=== PATIENT | female | born 1985 | race American Indian/Alaskan Native ===

== ENCOUNTER 2017-05-11 09:36 | Emergency (ER) | payer OTHER ==
[2017-05-11 10:14] VITALS: BP 105/57
[2017-05-11 11:01] LABS: Basophils % (Auto) 0.6 % (0.0-1.8); Eosinophils % (Auto) 0.6 % (0.0-4.3); Hematocrit 42.4 % (30.3-42.9); Hemoglobin 14.4 gm/dl (10.1-14.3); Lymphocytes # (Auto) 1.9 K/mm3 (1.2-5.4); Lymphocytes % (Auto) 25.5 % (13.4-35.0); Mean Corpuscular HGB Conc 34 % (30-34); Mean Corpuscular Hemoglobin 29 pg (28-32); Mean Corpuscular Volume 86 fl (79-97); Monocytes # (Auto) 0.5 K/mm3 (0.0-0.8); Monocytes % (Auto) 6.7 % (0.0-7.3); Platelet Count 165 K/mm3 (140-440); Red Blood Count 4.91 M/mm3 (3.65-5.03); Red Cell Distribution Width 12.6 % (13.2-15.2)
[2017-05-11 11:09] LABS: BUN/Creatinine Ratio 14; Blood Urea Nitrogen 7 mg/dL (7-17); Hemolysis Index 32
--- NOTE | 2017-05-11 11:16 | XRay Report ---
PA and lateral chest: Right chest pain. There is a dextroscoliosis with otherwise unremarkable bony structures. The lungs are clear the mediastinal contour is unremarkable. No prior exam for comparison. Impression: No acute finding.
[2017-05-11] MEDS ORDERED: ULTRAM PO ONE (11:34)
--- NOTE | 2017-05-11 11:39 | Emergency Department Report ---
ED Chest Pain HPI - General Chief Complaint: Chest Pain Stated Complaint: CP Time Seen by Provider: 05/11/17 11:31 Source: patient Mode of arrival: Ambulatory Limitations: No Limitations - History of Present Illness Initial Comments: Patient is a 32-year-old -Luxembourger female who presents to ED for substernal chest pain radiating to right upper back 1 week pain is exacerbated by deep breathing patient states intermittent shortness of breath there is no history of asthma bronchitis in no fever no chills no nausea no vomiting pain is reproduced to palpation and right arm movement . Patient denies fall trauma or injury patient concern for PE however there is no patient or family history of same. MD Complaint: chest pain Onset/Timin -: week(s) Onset: other (deep breathing ) Pain Location: substernal, right chest Pain Radiation: back Severity: moderate Severity scale (0 -10): 5 Quality: sharp Consistency: intermittent Improves With: nothing Worsens With: palpation, movement Context: recent travel (recent car trip for Dc to [place] 10 hrs 5 days ago ) re: dyspnea. denies: nausea, vomting, diaphoresis, sense of impending doom Other Symptoms: cough. denies: fever, syncope, rash, acid taste in mouth, leg swelling, palpitations, burping Treatments Prior to Arrival: none - Related Data On Oral Contraceptives: No Previous Rx's Medication Instructions Recorded Last Taken Type Cephalexin [Keflex] 500 mg PO BID #14 capsule 05/11/17 Unknown Rx Naproxen 500 mg PO BID PRN #60 tablet 05/11/17 Unknown Rx Allergies Allergy/AdvReac Type Severity Reaction Status Date / Time No Known Allergies Allergy Unverified 05/11/17 10:09 Heart Score - HEART Score History: Slightly suspicious EKG: Normal Age: < 45 Risk factors: No known risk factors Troponin: < normal limit (0) HEART Score: 0 ED Review of Systems ROS: Stated complaint: CP Other details as noted in HPI Constitutional: denies: chills, fever Eyes: denies: eye pain, eye discharge, vision change ENT: denies: ear pain, throat pain Respiratory: denies: cough, shortness of breath, wheezing Cardiovascular: chest pain. denies: palpitations Endocrine: no symptoms reported Gastrointestinal: denies: abdominal pain, nausea, diarrhea Genitourinary: denies: urgency, dysuria, discharge Musculoskeletal: denies: back pain, joint swelling, arthralgia Skin: denies: rash, lesions Neurological: denies: headache, weakness, paresthesias Psychiatric: denies: anxiety, depression Hematological/Lymphatic: denies: easy bleeding, easy bruising ED Past Medical Hx - Past Medical History Previous Medical History?: Yes Additional medical history: heart murmur - Surgical History Past Surgical History?: No - Social History Smoking Status: Current Every Day Smoker Substance Use Type: Alcohol, Marijuana - Medications Home Medications: Home Medications Medication Instructions Recorded Confirmed Last Taken Type Cephalexin [Keflex] 500 mg PO BID #14 capsule 05/11/17 Unknown Rx Naproxen 500 mg PO BID PRN #60 tablet 05/11/17 Unknown Rx ED Physical Exam - General Limitations: No Limitations General appearance: alert, in no apparent distress - Head Head exam: Present: atraumatic, normocephalic - Eye Eye exam: Present: normal appearance - ENT ENT exam: Present: mucous membranes moist - Neck Neck exam: Present: normal inspection - Respiratory Respiratory exam: Present: normal lung sounds bilaterally, chest wall tenderness (right lateral chest wall ). Absent: respiratory distress, wheezes, stridor - Cardiovascular Cardiovascular Exam: Present: regular rate, normal rhythm, normal heart sounds, systolic murmur. Absent: diastolic murmur, rubs, gallop - GI/Abdominal GI/Abdominal exam: Present: soft, normal bowel sounds. Absent: distended, tenderness, guarding, rebound, rigid, organomegaly, mass, bruit, pulsatile mass , hernia - Rectal Rectal exam: Present: deferred - Extremities Exam Extremities exam: Present: normal inspection, full ROM. Absent: tenderness - Back Exam Back exam: Present: normal inspection, full ROM, tenderness (right flank). Absent: CVA tenderness (R), CVA tenderness (L), muscle spasm, paraspinal tenderness, vertebral tenderness - Neurological Exam Neurological exam: Present: alert, oriented X3, CN II-XII intact, normal gait, reflexes normal - Psychiatric Psychiatric exam: Present: normal affect, normal mood - Skin Skin exam: Present: warm, dry, intact, normal color. Absent: rash ED Course Vital Signs 05/11/17 10:09 Temperature 98.2 F Pulse Rate 68 Respiratory 20 Rate Blood Pressure 105/57 O2 Sat by Pulse 100 Oximetry JOSE score - Jose Score Age > 65: (0) No Aspirin use within the Past 7 Days: (0) No 3 or more CAD Risk Factors: (0) No 2 or more Angina events in past 24 hrs: (1) Yes Known CAD with more than 50% Stenosis: (0) No Elevated Cardiac Markers: (0) No ST Deviation Greater than 0.5mm: (0) No JOSE Score: 1 ED Medical Decision Making - Lab Data Result diagrams: 05/11/17 10:43 05/11/17 10:43 Laboratory Tests 05/11/17 05/11/17 05/11/17 10:43 10:43 10:43 WBC 7.3 RBC 4.91 Hgb 14.4 H Hct 42.4 MCV 86 MCH 29 MCHC 34 RDW 12.6 L Plt Count 165 Lymph % (Auto) 25.5 Park % (Auto) 6.7 Eos % (Auto) 0.6 Baso % (Auto) 0.6 Lymph # 1.9 Park # 0.5 Eos # 0.0 Baso # 0.0 Seg Neutrophils % 66.6 Seg Neutrophils # 4.9 D-Dimer Sodium 139 Potassium 4.6 Chloride 101.7 Carbon Dioxide 27 Anion Gap 15 BUN 7 Creatinine 0.5 L Estimated GFR > 60 BUN/Creatinine Ratio 14 Glucose 84 Calcium 9.0 Troponin T < 0.010 05/11/17 12:05 WBC RBC Hgb Hct MCV MCH MCHC RDW Plt Count Lymph % (Auto) Park % (Auto) Eos % (Auto) Baso % (Auto) Lymph # Park # Eos # Baso # Seg Neutrophils % Seg Neutrophils # D-Dimer < 135 Sodium Potassium Chloride Carbon Dioxide Anion Gap BUN Creatinine Estimated GFR BUN/Creatinine Ratio Glucose Calcium Troponin T Laboratory Tests 05/11/17 05/11/17 05/11/17 10:43 10:43 10:43 WBC 7.3 RBC 4.91 Hgb 14.4 H Hct 42.4 MCV 86 MCH 29 MCHC 34 RDW 12.6 L Plt Count 165 Lymph % (Auto) 25.5 Park % (Auto) 6.7 Eos % (Auto) 0.6 Baso % (Auto) 0.6 Lymph # 1.9 Park # 0.5 Eos # 0.0 Baso # 0.0 Seg Neutrophils % 66.6 Seg Neutrophils # 4.9 D-Dimer Sodium 139 Potassium 4.6 Chloride 101.7 Carbon Dioxide 27 Anion Gap 15 BUN 7 Creatinine 0.5 L Estimated GFR > 60 BUN/Creatinine Ratio 14 Glucose 84 Calcium 9.0 Troponin T < 0.010 Urine Color Urine Turbidity Urine pH Ur Specific [place] Urine Protein Urine Glucose (UA) Urine Ketones Urine Blood Urine Nitrite Ur Reducing Substances Urine Bilirubin Urine Ictotest Urine Urobilinogen Ur Leukocyte Esterase Urine WBC (Auto) Urine RBC (Auto) U Epithel Cells (Auto) Urine Mucus Urine HCG, Qual 05/11/17 05/11/17 12:05 12:50 WBC RBC Hgb Hct MCV MCH MCHC RDW Plt Count Lymph % (Auto) Park % (Auto) Eos % (Auto) Baso % (Auto) Lymph # Park # Eos # Baso # Seg Neutrophils % Seg Neutrophils # D-Dimer < 135 Sodium Potassium Chloride Carbon Dioxide Anion Gap BUN Creatinine Estimated GFR BUN/Creatinine Ratio Glucose Calcium Troponin T Urine Color Yellow Urine Turbidity Clear Urine pH 5.0 Ur Specific [place] 1.017 Urine Protein <15 mg/dl Urine Glucose (UA) Neg Urine Ketones Neg Urine Blood Sm Urine Nitrite Neg Ur Reducing Substances Not Reportable Urine Bilirubin Neg Urine Ictotest Not Reportable Urine Urobilinogen < 2.0 Ur Leukocyte Esterase Mod Urine WBC (Auto) 18.0 H Urine RBC (Auto) 8.0 U Epithel Cells (Auto) 9.0 Urine Mucus Few Urine HCG, Qual Negative - EKG Data EKG shows normal: sinus rhythm Rate: normal - EKG Data When compared to previous EKG there are: previous EKG unavailable, other (no previous EKG available ) Interpretation: normal EKG - Radiology Data Radiology results: report reviewed, image reviewed normal chest xray - Medical Decision Making Patient is a 32-year-old -Luxembour[place] female who presents to ED for substernal chest pain radiating to right upper back 1 week pain is exacerbated by deep breathing patient states intermittent shortness of breath there is no history of asthma bronchitis in no fever no chills no nausea no vomiting pain is reproduced to palpation and right arm movement . Patient denies fall trauma or injury patient concern for PE however there is no patient or family history of same. pt exam pt appears well nontoxic, right lateral chest wall pain to palpation no ecchymosis no deformity no crepitus no wheezing , pain is reproducible to palpation, cxr: normal , cmp: normal, cbc: normal, UA: luek, wbc , trace bld, this is not a kidney stone, or pyelo there is no hematuria, dysuria, frequenc flank pain no no urinary hesitency no fever no chills HCG:neg DDimer: , pain 5/10 with inspiration, pt given ketorlac 50 po , plan reassess pain level , noted DDimera; 115 plan tx for uti, chest wall pain pt claudia follow with orthopedics for evaluation of scoliosis chronic, pt verbalized agreement and understanding of same. pain is improved to 2/10 at this time pt for dc to home in stable condition at this time. Critical care attestation.: If time is entered above; I have spent that time in minutes in the direct care of this critically ill patient, excluding procedure time. ED Disposition Clinical Impression: Chest wall pain UTI (urinary tract infection) Qualifiers: Urinary tract infection type: acute cystitis Hematuria presence: without hematuria Qualified Code(s): N30.00 - Acute cystitis without hematuria Back pain Qualifiers: Back pain location: low back pain Chronicity: chronic Back pain laterality: right Sciatica presence: without sciatica Qualified Code(s): M54.5 - Low back pain; G89.29 - Other chronic pain; G89.29 - Other chronic pain Disposition: DC-01 TO HOME OR SELFCARE Is pt being admited?: No Does the pt Need Aspirin: No Condition: Good Instructions: Chest Pain (ED) Prescriptions: Cephalexin [Keflex] 500 mg PO BID #14 capsule Naproxen 500 mg PO BID PRN #60 tablet PRN Reason: Pain Referrals: PACHECO LINO MD [Staff Physician] - 3-5 Days MICHAEL MARTINEZ MD [Staff Physician] - 3-5 Days Forms: Work/School Release Form(ED) Time of Disposition: 14:12
[2017-05-11 13:16] LABS: HCG Qualitative,Urine Negative (Negative)
[2017-05-11 13:20] LABS: Bilirubin,Urine NEG (Negative); Blood,Urine SM (Negative); Color,Urine Yellow (Yellow); Mucus,Urine FEW /HPF; Nitrite,Urine NEG (Negative); Protein,Urine <15 mg/dL mg/dL (Negative); Urobilinogen,Urine < 2.0 mg/dL (<2.0)
== END 2017-05-11 14:48 | disposition home or self-care (01) ==
LOC: ED 09:36
DX: R07.89 Other chest pain (principal); M54.5 Low back pain; G89.29 Other chronic pain; N30.00 Acute cystitis without hematuria; F12.10 Cannabis abuse, uncomplicated; F17.200 Nicotine dependence, unspecified, uncomplicated
CPT/HCPCS: 36415; 71046; 80048; 81001; 81025; 84484; 85025; 85379; 93005; 93010; 99284

== ENCOUNTER 2019-04-13 14:03 | Emergency (ER) | payer MEDICAID ==
[2019-04-13 14:11] VITALS: BP 114/52
--- NOTE | 2019-04-13 14:12 | Emergency Department Report ---
Chief Complaint: Medical Clearance Stated Complaint: KNOT ON BREAST Time Seen by Provider: 04/13/19 14:07 - HPI History of Present Illness: states that whenever she has a menstrual cycle she notices a lump in her right breast states that it spontaneously goes away after her cycle states that she noticed the lump again last night and her cycle is supposed to start in approximately 1 week no nipple discharge pt is not breast feeding no skin changes on the breast no fever no SENIOR DESIGN ENGINEERING SPECIALIST no PMHx no allergies to meds grandmother hx of breast CA, dx at 74 years old vitals are normal radiation engineer during examination: Lisset Hilton RN on exam: small freely moveable lump to the right breast at the 4 oclock position, she has tenderness upon palpation, there is no nipple discharge, no nipple retraction, no peau d'orange pt will be referred to an SENIOR DESIGN ENGINEERING SPECIALIST for further evaluation pt is presenting with a non medical emergency at this time MSE screening note: Focused history and physical exam performed. ED Disposition for MSE Clinical Impression: Lump of right breast Disposition: MED SCREENING EXAM-LEFT Is pt being admited?: No Does the pt Need Aspirin: No Condition: Stable Referrals: [facility] [Provider Group] - 2-3 Days [facility] [Provider Group] - 2-3 Days [facility] [Provider Group] - 2-3 Days Time of Disposition: 14:11 Print Language: WALLISIAN
== END 2019-04-13 14:30 | disposition left against medical advice (07) ==
LOC: ED 14:03
DX: N63.0 Unspecified lump in unspecified breast (principal)
CPT/HCPCS: 99282

== ENCOUNTER 2019-07-10 12:30 | Emergency (ER) | payer MEDICAID ==
--- NOTE | 2019-07-10 12:37 | Emergency Department Report ---
Blank Doc - Documentation Documentation: 34-year-old female that presents with abdominal pain with nausea. This initial assessment/diagnostic orders/clinical plan/treatment(s) is/are subject to change based on patient's health status, clinical progression and re- assessment by fellow clinical providers in the ED. Further treatment and workup at subsequent clinical providers discretion. Patient/guardians urged not to elope from the ED as their condition may be serious if not clinically assessed and managed. Initial orders include: 1- Patient sent to [facility] for further evaluation and treatment 2- labs 3- UA
[2019-07-10 13:28] LABS: Bilirubin,Urine NEG (Negative); Blood,Urine NEG (Negative); Color,Urine Yellow (Yellow); Mucus,Urine FEW /HPF; Protein,Urine <15 mg/dL mg/dL (Negative); Urobilinogen,Urine < 2.0 mg/dL (<2.0)
[2019-07-10 14:13] LABS: Basophils % (Auto) 0.7 % (0.0-1.8); Eosinophils # (Auto) 0.1 K/mm3 (0.0-0.4); Eosinophils % (Auto) 1.3 % (0.0-4.3); Hematocrit 39.7 % (30.3-42.9); Hemoglobin 13.2 gm/dl (10.1-14.3); Lymphocytes # (Auto) 1.7 K/mm3 (1.2-5.4); Lymphocytes % (Auto) 31.5 % (13.4-35.0); Mean Corpuscular HGB Conc 33 % (30-34); Mean Corpuscular Volume 86 fl (79-97); Monocytes # (Auto) 0.5 K/mm3 (0.0-0.8); Monocytes % (Auto) 8.4 % (0.0-7.3); Platelet Count 186 K/mm3 (140-440); Red Cell Distribution Width 12.5 % (13.2-15.2)
[2019-07-10 14:21] LABS: Alanine Aminotransferase 16 units/L (7-56); Albumin 4.1 g/dL (3.9-5); BUN/Creatinine Ratio 10; Blood Urea Nitrogen 6 mg/dL (7-17); Hemolysis Index 18
[2019-07-10] MEDS ORDERED: MAGNESIUM CITRATE 300 ML ORAL LIQD PO ONE (14:52)
--- NOTE | 2019-07-10 14:52 | Emergency Department Report ---
ED Abdominal Pain HPI - General Chief Complaint: Abdominal Pain Stated Complaint: STOMACH/CONSTIPATED Time Seen by Provider: 07/10/19 12:36 Source: patient Mode of arrival: Ambulatory Limitations: No Limitations - History of Present Illness Initial Comments: Patient is a 34-year-old -Af[place] female who comes to the ER with complaints of constipation. She states she had a BM this morning but she had to push really hard to have a small stool. She denies any nausea vomiting or runny loose diarrhea. Patient denies any fever or chills. Patient denies any dysuria or vaginal bleeding. Her last menstrual cycle was 2-20. Patient endorses ciga rette smoking. Denies drugs or alcohol. Patient is nontoxic on exam. However she is tender on palpation in the periumbilical area. -: Gradual, days(s) Location: periumbilical Consistency: constant Improves With: nothing Worsens With: nothing Associated Symptoms: denies other symptoms, constipation - Related Data Previous Rx's Medication Instructions Recorded Last Taken Type Ibuprofen [Motrin] 800 mg PO Q8HR PRN #30 tablet 07/10/19 Unknown Rx Sulfamethoxazole/Trimethoprim 1 each PO BID #10 tablet 07/10/19 Unknown Rx [Bactrim DS TAB] Allergies Allergy/AdvReac Type Severity Reaction Status Date / Time No Known Allergies Allergy Verified 04/13/19 14:03 ED Review of Systems ROS: Stated complaint: STOMACH/CONSTIPATED Other details as noted in HPI Comment: All other systems reviewed and negative ED Past Medical Hx - Past Medical History Previous Medical History?: Yes Additional medical history: heart murmur - Surgical History Past Surgical History?: Yes Additional Surgical History: C SECTION/ TONSILS - Family History Family history: no significant - Social History Smoking Status: Never Smoker Substance Use Type: None - Medications Home Medications: Home Medications Medication Instructions Recorded Confirmed Last Taken Type Ibuprofen [Motrin] 800 mg PO Q8HR PRN #30 tablet 07/10/19 Unknown Rx Sulfamethoxazole/Trimethoprim 1 each PO BID #10 tablet 07/10/19 Unknown Rx [Bactrim DS TAB] ED Physical Exam - General Limitations: No Limitations General appearance: alert, in no apparent distress - Head Head exam: Present: atraumatic, normocephalic - Eye Eye exam: Present: normal appearance - ENT ENT exam: Present: mucous membranes moist - Neck Neck exam: Present: normal inspection - Respiratory Respiratory exam: Present: normal lung sounds bilaterally. Absent: respiratory distress - Cardiovascular Cardiovascular Exam: Present: regular rate, normal rhythm. Absent: systolic murmur, diastolic murmur, rubs, gallop - GI/Abdominal GI/Abdominal exam: Present: soft, tenderness, normal bowel sounds - Extremities Exam Extremities exam: Present: normal inspection - Back Exam Back exam: Present: normal inspection - Neurological Exam Neurological exam: Present: alert, oriented X3 - Psychiatric Psychiatric exam: Present: normal affect, normal mood - Skin Skin exam: Present: warm, dry, intact, normal color. Absent: rash ED Course Vital Signs 07/10/19 07/10/19 12:36 18:09 Temperature 97.9 F 98.7 F Pulse Rate 92 H 51 L Respiratory 18 16 Rate Blood Pressure 110/60 109/62 O2 Sat by Pulse 99 100 Oximetry ED Medical Decision Making - Lab Data Result diagrams: 07/10/19 13:21 07/10/19 13:21 - Radiology Data Radiology results: report reviewed, image reviewed - Medical Decision Making Labs 07/10/19 07/10/19 07/10/19 12:55 13:21 13:21 WBC 5.4 RBC 4.60 Hgb 13.2 Hct 39.7 MCV 86 MCH 29 MCHC 33 RDW 12.5 L Plt Count 186 Lymph % (Auto) 31.5 [place] % (Auto) 8.4 H Eos % (Auto) 1.3 Baso % (Auto) 0.7 Lymph # 1.7 [place] # 0.5 Eos # 0.1 Baso # 0.0 Seg Neutrophils % 58.1 Seg Neutrophils # 3.1 Sodium 138 Potassium 4.6 Chloride 102.4 Carbon Dioxide 23 Anion Gap 17 BUN 6 L Creatinine 0.6 L Estimated GFR > 60 BUN/Creatinine Ratio 10 Glucose 91 Calcium 9.0 Total Bilirubin 0.40 AST 17 ALT 16 Alkaline Phosphatase 53 Total Protein 6.6 Albumin 4.1 Albumin/Globulin Ratio 1.6 Lipase 15 HCG, Qual Urine Color Yellow Urine Turbidity Slightly-cloudy Urine pH 7.0 Ur Specific [place] 1.016 Urine Protein <15 mg/dl Urine Glucose (UA) Neg Urine Ketones Neg Urine Blood Neg Urine Nitrite Neg Urine Bilirubin Neg Urine Urobilinogen < 2.0 Ur Leukocyte Esterase Tr Urine WBC (Auto) 6.0 Urine RBC (Auto) 4.0 U Epithel Cells (Auto) 10.0 Urine Mucus Few 07/10/19 13:21 WBC RBC Hgb Hct MCV MCH MCHC RDW Plt Count Lymph % (Auto) [place] % (Auto) Eos % (Auto) Baso % (Auto) Lymph # [place] # Eos # Baso # Seg Neutrophils % Seg Neutrophils # Sodium Potassium Chloride Carbon Dioxide Anion Gap BUN Creatinine Estimated GFR BUN/Creatinine Ratio Glucose Calcium Total Bilirubin AST ALT Alkaline Phosphatase Total Protein Albumin Albumin/Globulin Ratio Lipase HCG, Qual Negative Urine Color Urine Turbidity Urine pH Ur Specific [place] Urine Protein Urine Glucose (UA) Urine Ketones Urine Blood Urine Nitrite Urine Bilirubin Urine Urobilinogen Ur Leukocyte Esterase Urine WBC (Auto) Urine RBC (Auto) U Epithel Cells (Auto) Urine Mucus Vital Signs 07/10/19 12:36 Temperature 97.9 F Pulse Rate 92 H Respiratory 18 Rate Blood Pressure 110/60 O2 Sat by Pulse 99 Oximetry LABS NOTED UA NOTED LEUK/WBC-NO NITRATES PREG NEG XRAY NEG FOR CONSTIPATION CT NOTED NS/ROCEPHIN IV IN ER PT DC HOME WITH DC POC AND OBGYN FOLLOW UP. ON DC SHE REPORTS FEELING BETTER. IS IN NAD. IS TAKING PO AND AMBULATORY. - Differential Diagnosis RO CONSTIPATION/OBSTRUCTION/ACUTE ABD Critical care attestation.: If time is entered above; I have spent that time in minutes in the direct care of this critically ill patient, excluding procedure time. ED Disposition Clinical Impression: Abdominal pain, Leukorrhea, Ovarian cyst Disposition: TO HOME OR SELFCARE Is pt being admited?: No Does the pt Need Aspirin: No Condition: Stable Instructions: Abdominal Pain (ED) Additional Instructions: WARM COMPRESSES MEDS ORDERED TODAY FOLLOW UP WITH OBGYN AND PCP REFERRALS BELOW Prescriptions: Sulfamethoxazole/Trimethoprim [Bactrim DS TAB] 1 each PO BID #10 tablet Ibuprofen [Motrin] 800 mg PO Q8HR PRN #30 tablet PRN Reason: Pain, Moderate (4-6) Referrals: TENISHA RAMIRES NP [Primary Care Provider] - 3-5 Days MENDEZ SCHULTZ MD [Staff Physician] - 3-5 Days KATARZYNA WERNER MD [Staff Physician] - 3-5 Days Time of Disposition: 17:01
--- NOTE | 2019-07-10 15:43 | XRay Report ---
PROCEDURE: ABDOMEN FLAT AND UPRIGHT WITH SINGLE VIEW CHEST HISTORY: abd pain COMPARISON: 05/11/2017 chest x-ray TECHNIQUE: Supine and upright abdominal as well as single view chest radiographs obtained. FINDINGS: Lungs: The lungs are clear. The lung volumes are normal. Pleural Effusion: No evidence of a pleural effusion is seen. Pneumothorax: No evidence of pneumothorax is seen. Cardiac: The heart size is normal. Mediastinal silhouette: The mediastinal silhouette is normal. Hilar regions: The hilar regions are normal in appearance. Pulmonary vascularity: The pulmonary vascularity is normal in appearance. Trachea: The trachea is midline. Skeletal structures: Thoracic dextroscoliosis. Support hardware: None. Additional findings: None. Bowel: The bowel gas pattern is normal in appearance. No evidence of obstruction is seen. No evidence of free air is identified. Calcifications: No abnormal calcifications over the kidneys or along the course of the ureters are se en. No phleboliths in the pelvis are seen. Osseous Structures: Lumbar levoscoliosis. Additional findings: None. IMPRESSION: Negative abdomen and chest exams. Signer Name: Prashanth Nunn MD Signed: 07/10/2019 3:39 PM Workstation Name: [id number]
[2019-07-10] MEDS ORDERED: SODIUM CHLORIDE 0.9% 1000 ML 1,000 ML IV ONE (15:47)
[2019-07-10] MEDS ORDERED: ONDANSETRON 4 MG/2 ML INJ IV ONE (17:01)
[2019-07-10] MEDS ORDERED: cefTRIAXone/NS 1 GM/50 ML 1 GM/50 ML BAG IV ONE (17:01)
--- NOTE | 2019-07-10 17:01 | Cat Scan Report ---
CT abdomen pelvis w con INDICATION: Periumbilical pain. TECHNIQUE: All CT scans at this location are performed using the following dose modulation technique: Automated exposure control. CONTRAST: Omnipaque 300, 100 cc IV injection. COMPARISON: None available. CT ABDOMEN: The parenchymal organs are unremarkable in appearance. Negative for abdominal mass, fluid or inflammation. The bowel is not dilated or thickened. CT PELVIS: Negative for pelvic mass, fluid collection or inflammation. The left ovary contains a rupt ured corpus luteum cyst. A small amount of pelvic free fluid is noted. A fat-containing umbilical hernia is small. IMPRESSION: 1. Ruptured left corpus luteum cyst with small amount of pelvic free fluid. 2. Negative for obstruction or localized inflammation. Signer Name: Jose Chacon MD Signed: 07/10/2019 4:56 PM Workstation Name: [id number]
[2019-07-10] MEDS ORDERED: IBUPROFEN 800 MG TAB PO ONE (17:17)
[2019-07-10 18:11] VITALS: BP 109/62
== END 2019-07-10 18:25 | disposition home or self-care (01) ==
LOC: ED 12:30
DX: N89.8 Other specified noninflammatory disorders of vagina (principal); N83.209 Unspecified ovarian cyst, unspecified side; R10.9 Unspecified abdominal pain; Z98.890 Other specified postprocedural states; Z79.899 Other long term (current) drug therapy
CPT/HCPCS: 36415; 74022; 74177; 80053; 81001; 83690; 84703; 85025; 96365; 96375; 99284; J0696; J2405; J7030; Q9967